=== PATIENT | female | born 1985 | race Caucasian/White ===

== ENCOUNTER → 2021-03-03 15:00 | Outpatient (CLI) | payer OTHER, SELFPAY ==
--- NOTE | ~2021-03-03 | CT_ITS ---
EXAMINATION: CT brain wo/w con DATE: 03/03/2021 15:33 INDICATION: Bilateral optic disc edema. Left-sided tinnitus. TECHNIQUE: Computed tomography (CT) of the head was performed without and with 100 mL Omnipaque 350 i ntravenous contrast. The mA was adjusted according to patient size. Iterative reconstruction techniqu e was employed. The dose-length product was 1199.14 mGy-cm. COMPARISON: None FINDINGS: There is no intracranial hemorrhage, acute infarction, or abnormal intracranial mass lesion . The ventricles are normal in size. The paranasal sinuses are clear. The mastoid air cells are chato l. The orbits are normal. IMPRESSION: 1. Normal brain. Reviewed, dictated and finalized at location A. IMPRESSION: 1. Normal brain.
== END ==
PROVIDERS: PCP Internal Medicine
DX: R60.0 Localized edema (principal)
CPT/HCPCS: 70470; Q9967

== ENCOUNTER → 2021-09-05 14:47 | Outpatient (CLI) | payer OTHER, SELFPAY ==
--- NOTE | ~2021-09-05 | US_ITS ---
EXAMINATION: US pelvic complete w TV DATE: 09/05/2021 15:40 INDICATION: Pelvic pain TECHNIQUE: Multiple transabdominal and endovaginal sonographic images of the pelvis were obtained. COMPARISON: None. FINDINGS: The uterus measures 7.5 x 3.3 x 4.6 cm. The endometrial complex measures 4 mm. The IUD appe ars to be in expected position. The right ovary measures 3.9 x 2.9 x 3.2 cm. The left ovary measures 2.7 x 1.6 x 2.5 cm. There is normal vascular flow in the ovaries. There is no free fluid in the pelvi s. IMPRESSION: 1. No sonographic correlate for the patient's symptoms. Reviewed, dictated and finalized at location A. TER
== END ==
PROVIDERS: PCP Internal Medicine; Visit Provider Internal Medicine
DX: R10.30 Lower abdominal pain, unspecified (principal)
CPT/HCPCS: 76830; 76856